=== PATIENT | female | born 1945 | race Caucasian/White ===

== ENCOUNTER → 2019-12-09 | Outpatient (CLI) | payer OTHER ==
[~2019-12-09] MED LIST: CALCIUM 500 +1 EAC5 PO; CITALOPRAM HBR40 MG PO; EXCEDRIN CAPLE1 EACH PO; GARCINIA CAMBO1 EACH PO; SEROVITAL PO
== END ==
LOC: CAT 14:13
PROVIDERS: ATTEND Family Medicine
DX: Z13.6 Encounter for screening for cardiovascular disorders (principal); I25.10 Atherosclerotic heart disease of native coronary artery without angina pectoris; E78.00 Pure hypercholesterolemia, unspecified